=== PATIENT | female | born 1980 | race Caucasian/White ===

== ENCOUNTER 2016-07-22 21:25 | Emergency (ER) | payer OTHER ==
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
[2016-07-22] MEDS ORDERED: KETOROLAC TROMETHAMINE 60 MG/2 ML VIAL IM ONE ×2 (21:44→21:49)
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
[2016-07-22 23:35] LABS: Urine Bilirubin 1 mg/dl (NEGATIVE); Urine Blood Negative /ul (NEGATIVE); Urine Ketone Negative (NEGATIVE); Urine Nitrite Negative (NEGATIVE); Urine Protein 15 mg/dL (NEGATIVE); Urine Specific Gravity >=1.030 SP.GR. (1.005-1.010); Urine Urobilinogen Normal (NORMAL)
[2016-07-22 23:48] LABS: Urine Appearance Clear; Urine Bacteria 1+; Urine Color Yellow; Urine RBC None Seen /hpf (0-5); Urine WBC None Seen /hpf (0-5)
[2016-07-22 23:49] LABS: Urine Mucus Many - 3+
[2016-07-23] MEDS ORDERED: HYDROmorphone HCL 1 MG/ML DISP.SYRIN IM ONE
[2016-07-23] MEDS ORDERED: diphenhydrAMINE HCL 50 MG/ML VIAL IM ONE (00:01)
[2016-07-23] MEDS ORDERED: PROMETHAZINE HCL 25 MG/ML AMPUL IM ONE (00:01)
[2016-07-23] MEDS ORDERED: diphenhydrAMINE HCL 50 MG/ML VIAL ONE (00:10)
[2016-07-23] MEDS ORDERED: PROMETHAZINE HCL 25 MG/ML AMPUL ONE (00:10)
[2016-07-23] MEDS ORDERED: HYDROmorphone HCL 1 MG/ML DISP.SYRIN ONE (00:10)
[2016-07-23 04:14] VITALS: BP 137/94
== END 2016-07-23 00:21 | disposition home or self-care (01) ==
LOC: ER 21:25
DX: M54.6 Pain in thoracic spine (principal); F17.200 Nicotine dependence, unspecified, uncomplicated; X50.1XXA Overexertion from prolonged static or awkward postures, initial encounter

== ENCOUNTER 2016-11-03 14:49 | Emergency (ER) | payer OTHER ==
[2016-11-03 15:03] VITALS: BP 114/66
--- OUTSIDE RECORDS SUMMARY | 2016-11-03 15:18 | XMS REPORT | Clinical Summary ---
:1980 Author Organization [employer] [place] [address] Care Team Providers Name Role Phone Unavailable Primary Care Provider Unavailable Source Comments This disclosure is being made pursuant to the [employer] program and maynot contain all information available regarding this patient.[employer] Allergies Not on File Current Medications Be aware that medications may not be up to date as of this document. Alwaysverify current medications with the patient. Not on file Active Problems Not on file Social History Tobacco Use Types Packs/Day Years Used Date Never Assessed Sex Assigned at Date Recorded Not on file Last Filed Vital Signs Not on file Plan of Treatment Health Maintenance Due Date Last Done Comments Tetanus/Pertussis (1 - Tdap) 2001 Pap Smear 11/09/2003 INFLUENZA IMMUNIZATION (#1) 2016 Results Not on filefrom Last 3 Months Insurance Payer Benefit Plan / Subscriber ID Type Phone Address Group [facility] [place] [facility] [id number] Managed [phone] [address] [address] MEDICAID MEDICAID [address] [place] [id number] Home: [id number] [phone] [place], [place] [phone]
[2016-11-03] MEDS ORDERED: KETOROLAC TROMETHAMINE 60 MG/2 ML VIAL IM ONE ×2 (15:23→15:28)
[2016-11-03 15:30] LABS: Hematocrit 37.5 % (37.0-47.0); Hemoglobin 12.7 gm/dL (12.5-16.0); Mean Cell Volume 95.4 fl (78-100); Mean Corpuscular Hemoglobin 32.3 pg (27-31); Mean Corpuscular Hgb Conc 33.9 g/dl (32-36); Neutrophil % 37.3 % (42-75.0); Platelet Count 243 K/mm3 (150-450); Red Blood Count 3.93 M/mm3 (4.2-5.4); Red Cell Distribution Width 11.9 % (11.5-14.0); White Blood Count 5.4 K/mm3 (4.0-10.5)
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
[2016-11-03 15:52] LABS: Albumin * 3.1 gm/dl (3.4-5.0); Anion Gap 10.4 mmol/L (6.8-13.8); BUN/Creatinine Ratio 12.3 (9.0-21.6); Bilirubin, Total 0.2 mg/dL (0.0-1.1); Ca. Corrected For Albumin 8.6 mg/dL (8.4-10.2); Calcium * 8.2 mg/dL (7.9-10.9); Carbon Dioxide 27.9 mmol/L (24-32.6); Potassium 4.3 mmol/L (3.4-4.6); Total Protein 6.3 gm/dL (6.2-8.2)
== END 2016-11-03 15:59 | disposition home or self-care (01) ==
LOC: ER 14:49
DX: K08.89 Other specified disorders of teeth and supporting structures (principal); Z98.818 Other dental procedure status

== ENCOUNTER 2016-12-21 22:57 | Emergency (ER) | payer OTHER ==
[2016-12-21 23:06] VITALS: BP 117/80
[2016-12-21] MEDS ORDERED: predniSONE 20 MG TABLET PO ONE (23:18)
[2016-12-21] MEDS ORDERED: predniSONE 20 MG TABLET ONE (23:20)
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
== END 2016-12-21 23:27 | disposition home or self-care (01) ==
LOC: ER 22:57
DX: L23.7 Allergic contact dermatitis due to plants, except food (principal)